=== PATIENT | female | born 2000 | race African-American/Black ===

== ENCOUNTER 2022-07-24 12:08 | Emergency (ER) | payer MEDICAID ==
[~2022-07-24] VITALS: Ht 175.3 cm; Wt 89.0 kg
[2022-07-24 12:22] VITALS: BP 110/66
[2022-07-24] MEDS ORDERED: VISCOUS LIDOCAINE 2% 15 ML UDC PO STA (15:35)
[2022-07-24] MEDS ORDERED: IBUPROFEN 400MG TABLET PO ONE (15:45)
[2022-07-24 17:21] LABS: CLARITY URINE CLOUDY (CLEAR); COLOR URINE DARK YELLOW (YELLOW); KETONES URINE 3+ (NEGATIVE); LEUKOCYTE ESTERASE URINE TRACE (NEGATIVE); NITRITE URINE NEGATIVE (NEGATIVE); OCCULT BLOOD URINE 1+ (NEGATIVE); PH URINE 6.5 (4.5-8.0); PROTEIN URINE 1+ (NEGATIVE); SPECIFIC GRAVITY URINE 1.043 (1.005-1.030)
[2022-07-24] MEDS ORDERED: CEPH250C2 MT (18:08)
[2022-07-24 19:24] LABS: CHLORIDE 103 mEq/L (98-107)
[2022-07-24 19:29] LABS: HEMOGLOBIN. 11.4 g/dL (12.0-16.0); LYMPHOCYTES % 9.9 % (20.0-50.0); MEAN CORPUSCULAR HEMOGLOBIN 25.3 pg (28.0-32.0); MEAN CORPUSCULAR VOLUME 78.1 fL (81.0-99.0); MEAN PLATELET VOLUME 7.8 fl (7.4-10.4); MONOCYTES % 6.5 % (2.0-8.0); NEUTROPHILS % 83.6 % (40.0-76.0); PLATELET 230 x1000/uL (130-400); RED BLOOD CELL COUNT 4.48 mill/uL (4.2-5.4); RED CELL DISTRIBUTION WIDTH 17.5 % (11.6-14.6)
[2022-07-24] MEDS ORDERED: ACETAMINOPHEN 325MG TABLET PO NR (19:45)
[2022-07-24 19:46] LABS: B-HCG QUANTITATIVE 1795 mIU/mL (<3)
== END 2022-07-24 20:15 | disposition home or self-care (01) ==
LOC: ER 12:29
DX: O23.31 Infections of other parts of urinary tract in pregnancy, first trimester (principal); Z3A.01 Less than 8 weeks gestation of pregnancy; Z20.822 Contact with and (suspected) exposure to COVID-19
CPT/HCPCS: 36415; 76801; 76817; 80053; 81003; 81025; 84702; 85025; 87070; 87426; 87430; 87804; 99284; C9803